=== PATIENT | male | born 1960 | race Caucasian/White ===

== ENCOUNTER 2019-02-26 07:42 | Day surgery (SDC) | payer BC ==
[2019-02-25 11:53] LABS: BASOPHILS 0 % (0-2); EOSINOPHILS 1.1 % (0-7); HEMATOCRIT 42.7 % (42.0-54.0); LYMPHOCYTES 21.3 % (15-50); MCHC 35.1 g/dL (31.0-37.0); MCV 88.2 fL (80.0-100.0); MEAN PLATELET VOLUME 9.6 fL (7.4-10.4); MONOCYTES 6.9 % (2-11); NEUTROPHILS 70.7 % (40-80); PLATELET COUNT 186 10x3/uL (130-400); RBC 4.84 10x6/uL (4.20-6.10); RDW 13.1 % (11.5-14.5); WBC 3.5 10x3/uL (4.8-10.8)
[2019-02-25 12:01] LABS: CALC OSMOLALITY 279 mosm/kg (275-300); CALCIUM 9.3 mg/dL (8.5-10.1); CARBON DIOXIDE 29.6 mmol/L (21.0-32.0); CHLORIDE - SERUM 104 mmol/L (98-107); CREATININE - SERUM 0.9 mg/dL (0.6-1.3); GLUCOSE 96 mg/dL (74-106); POTASSIUM - SERUM 4.1 mmol/L (3.5-5.1); SODIUM 140 mmol/L (136-145); UREA NITROGEN 14 mg/dL (7-18); eGFR NON AFRICAN AMERICAN > 90 mL/min (90-120)
[~2019-02-26] VITALS: Ht 172.7 cm; Wt 75.8 kg
[~2019-02-26 07:42] MED LIST: FISH OIL 1,0001 CA1
[2019-02-26] MEDS ORDERED: LIPITOR10 MG (08:09)
[2019-02-26 08:20] VITALS: BP 144/87; Ht 172.7 cm; Wt 75.8 kg
[2019-02-26] MEDS ORDERED: HYDROCODON-ACE1 EA10 PO (10:39)
--- NOTE | 2019-02-28 11:36 | OP ---
PATIENT NAME: MYA FRAZIER MEDICAL RECORD: [id number] :60 LOCATION:[facility] ADMISSION DATE: SURGEON: EULA FRANKS MD DATE OF OPERATION: 02/26/2019 PREOPERATIVE DIAGNOSES: 1. Ventral incisional hernia. 2. Hypercholesterolemia. POSTOPERATIVE DIAGNOSES: 1. Ventral incisional hernia. 2. Hypercholesterolemia. PROCEDURE: Ventral hernia repair without mesh. SURGEON: Eula Franks MD REPORT OF PROCEDURE: The patient's abdomen was prepped and draped in sterile fashion. A transverse incision was made through an old scar just above the umbilicus. Electrocautery was used to dissect through the subcutaneous tissues. As we came down, we encountered a small fat-containing hernia defect. This fatty tissue was pushed back into the abdominal cavity. The hernia defect was actually less than a centimeter in size. We inspected the tissues above and below and saw no evidence of any further herniation present. At this point, we cleaned off the edges of the fascia and then reapproximated transversely using interrupted 0 Prolenes times 2. We sutured the Prolene sutures down using 3-0 Vicryl and then reapproximated the subcutaneous tissues with interrupted 3-0 Vicryls. A total of 10 mL of 0.25% Marcaine with epinephrine was infused into the surrounding tissues, and the skin incision was closed with running subcutaneous 5-0 Monocryl. COMPLICATIONS: None. CONDITION: Stable. ANESTHESIA: General endotracheal and local. BLOOD LOSS: Minimal. TRANSINT:[id number] Voice Confirmation ID: [id number] DOCUMENT ID: [id number] EULA FRANKS MD at 1136 CC: [id number] DICTATION DATE: 02/26/19 1043 MUNICIPAL ENGINEER: 02/26/19 1056 [facility] [place] 02/26/19 [place] [id number]
== END 2019-02-26 12:15 | disposition home or self-care (01) ==
LOC: D.PAN 07:42 → D.OPS 10:10 → D.PAN 11:30 → D.OPS 12:30
PROVIDERS: ATTEND Surgery
DX: K43.2 Incisional hernia without obstruction or gangrene (principal); E78.00 Pure hypercholesterolemia, unspecified